=== PATIENT | male | born 2000 | race Two or more races ===

== ENCOUNTER 2025-10-12 14:46 | Emergency (ER) | payer BC, OTHER ==
[~2025-10-12] VITALS: Ht 177.8 cm; Wt 81.1 kg
--- NOTE | 2025-10-12 16:44 | ED.PDOC ---
Back pain HPI HPI Comments The patient presented with right knee pain exacerbated by movement and activity. The patient reported experiencing pain in the right knee that began almost two weeks ago. The pain worsened during activities such as bending, squatting, and kneeling. 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 The patient did not recall any specific injury or fall but noted frequent minor impacts at work. The patient did not report previous injuries to the right knee but described crepitus. There was no report of redness, swelling, or bruising. The patient mentioned stopping heavy lifting and squatting activities due to the pain. Pertinent negatives included no report of falls or specific significant injuries. Denies any other symptoms at this time. Right knee pain Started-one week ago Radiating behind the knee Pharmacotherapy Work is a possibility or with a chief Able to bear weight on the leg Denies trauma to the knee or recent fall Denies skin color changes around the knee Denies masses around the knee Denies popping/locking/giving out of the knee Denies fever chills night sweats nausea vomiting Denies previous surgeries to the knee nor significant injury Chief Complaint: Lower Extremity Time Seen by MD: 16:30 Reviewed Notes: Nurses Notes, Medications, Allergies Allergies: Coded Allergies: NO KNOWN ALLERGIES (Unverified , 10/12/25) Information Source: Patient Mode of Arrival: Ambulatory Timing: Days Duration: Since onset, Days Severity: Moderate Prehospital treatment: None Quality: Aching Onset: Spontaneous Circumstance: Other (Possibly work or gym related) History of: None Associated signs and symptoms: None Past Medical History PAST MEDICAL HISTORY: Denies Surgical History: Denies all surgeries Family History Family History: Reviewed,noncontributory to illness, Unknown Social History Smoker: Non-Smoker Alcohol: Denies ETOH Use Drugs: Denies Drug Use Lives In: Home Constitutional: denies: chills, diaphoresis, fatigue, fever, malaise, sweats, weakness, others EENTM: denies: blurred vision, double vision, ear bleeding, ear discharge, ear drainage, ear pain, ear ringing, eye pain, eye redness, hearing loss, mouth pain, mouth swelling, nasal discharge, nose bleeding, nose congestion, nose pain, photophobia, tearing, throat pain, throat swelling, voice changes, others Respiratory: denies: cough, hemoptysis, orthopnea, SOB at rest, shortness of breath, SOB with excertion, stridor, wheezing, others Cardiovascular: denies: chest pain, dizzy spells, diaphoresis, Dyspnea on exertion, edema, irregular heart beat, left arm pain, lightheadedness, palpitations, PND, syncope, others Gastrointestinal: denies: abdomen distended, abdominal pain, blood streaked bowels, constipated, diarrhea, dysphagia, difficulty swallowing, hematemesis, melena, nausea, poor appetite, poor fluid intake, rectal bleeding, rectal pain, vomiting, others Genitourinary: denies: burning, dysuria, flank pain, frequency, hematuria, incontinence, penile discharge, penile sore, pain, testicle pain, testicle swelling, urgency, others Neurological: denies: dizziness, fainting, headache, left sided numbness, left sided weakness, numbness, paresthesia, pre-existing deficit, right sided numbness, right sided weakness, seizure, speech problems, tingling, tremors, weakness, others Musculoskeletal: reports: others (Right knee pain); denies: back pain, gout, joint pain, joint swelling, muscle pain, muscle stiffness, neck pain Integumetry: denies: bruises, change in color, change in hair/nails, dryness, laceration, lesions, lumps, rash, wounds, others Allergic/Immunocompromised: denies: Difficulty Healing, Frequent Infections, Hives, Itching, others Hematologic/Lymphatic: denies: anemia, blood clots, easy bleeding, easy bruising, swollen glands, others Endocrine: denies: excessive hunger, excessive sweating, excessive thirst, excessive urination, flushing, intolerance to cold, intolerance to heat, unexplained weight gain, unexplained weight loss, others Psychiatric: denies: anxiety, bipolar disorder, depression, hopeless, panic disorder, schizophrenia, sleepless, suicidal, others All Other Systems: Reviewed and Negative Physical Exam Exam Comments Patient is alert. Musculoskeletal: Exam performed, findings not provided. No redness, swelling, or bruising in the right knee. No crepitus with flexion and extension. No tenderness to palpation of the femoral tendon, patella, or tibial tendon. Anterior posterior drawer test and valgus varus stress test were negative for pain or instability. General Appearance: No Apparent Distress, Normal HEENT: Normal ENT Inspection, Pharynx Normal, TMs Normal Neck: Full Range of Motion, Non-Tender, Normal, Normal Inspection Respiratory: Chest Non-Tender, Lungs Clear, No Accessory Muscle Use, No Respiratory Distress, Normal Breath Sounds Cardiovascular: No Edema, No JVD, No Murmur, No Gallop, Normal Peripheral Pulses, Regular Rate/Rhythm Breast Exam: Deferred Gastrointestinal: No Organomegaly, Non Tender, No Pulsatile Mass, Normal Bowel Sounds, Soft Genitalia: Deferred Pelvic: Deferred Rectal: Deferred Extremities: No calf tenderness, Normal capillary refill, Normal inspection, Normal range of motion, Non-tender, No pedal edema Musculoskeletal : Apperance: Normal Neurologic: Alert, k 9 police officer II-XII nml as Tested, No Motor Deficits, Normal Affect, Normal Mood, No Sensory Deficits Cerebellar Function: Normal Reflexes: Normal Skin: Dry, Normal Color, Warm Lymphatic: No Adenopathy Was a procedure done? Was a procedure done?: No X-Ray, Labs, Meds, VS Vital Signs Date Time Temp Pulse Resp B/P (MAP) Pulse Ox O2 Delivery O2 Flow Rate FiO2 10/12/25 17:18 98.2 10/12/25 14:52 98.6 100 16 147/82 100 98.6 Current Medications Medications (Trade) Dose Ordered Sig/Sindhu Route Start Time Stop Time Status Last Admin Ibuprofen (Motrin Tablet) 600 mg ONCE ONCE PO 10/12/25 16:45 10/12/25 16:46 DC 10/12/25 17:18 X-Ray, Labs, Meds, VS Comment Patient arrives alert and oriented, ABC's intact, afebrile, vital signs stable, saturating well in room air ASSESSMENT: The patient was assessed for potential tendinitis or jumper's knee, possibly due to overuse from construction work and powerlifting activities. The absence of significant swelling, redness, or tenderness indicated that the issue might be inflammatory rather than structural. The negative results from the anterior posterior drawer test and valgus varus stress test suggested no ligamentous instability. The possibility of tendinitis was considered, but an X- ray was recommended to rule out fractures or dislocations. PLAN: Treatment: - Medications: Ibuprofen 600-800 mg as needed for pain, up to three times a day. Tests: - Imaging: X-ray of the right knee to rule out fractures or dislocations. Patient Education: - Advised wearing a knee brace for stability if the X-ray is normal. - Recommended avoiding repetitive movements and frequent bending, and considering light duty at work. Follow-Up: - Follow up with a primary care physician for further evaluation, potential MRI, or physical therapy if symptoms persist. Disposition: - The patient was advised to refrain from heavy lifting and squatting until further evaluation. Additional MDM Review of External, Non-ED records: External records reviewed. Discussion with independent historian (EMS, family) history obtained from the patient/parents (if applicable) at bedside Chronic conditions affecting care: None Social determinants of health affecting care: None Consideration of admission (observation or admission): I considered escalation of care to admission for this patient, however given the reassuring workup, the patient is safe for outpatient management. Discussion with the Radiology: No Tests considered but not performed: Prescription medication considered but not given: 12 lead EKG interpretation: Time of 1ST Reevaluation: 17:00 Reevaluation 1ST: Unchanged Patient Education/Counseling: Diagnosis, Treatment, Prognosis Family Education/Counseling: No Family Present SEPSIS Sepsis Screen Date sepsis recognized/suspect: Oct 12, 2025 Time Sepsis recognized/suspect: 1451 Recent Procedure: No On Antibiotic Therapy: No Respiratory Rate >20: No Heart Rate >90: Yes Temp<36 C (96.8 F) or >38.3 C: No SBP <90 or MAP <65 mmHG: No New Acute Mental Status Change: No Is the patient on CPAP, BIPAP,: No Physician Orders R Knee 3v Xray (10/12/25 16:36) Vital Signs Date Time Temp Pulse Resp B/P (MAP) Pulse Ox O2 Delivery O2 Flow Rate FiO2 10/12/25 17:18 98.2 10/12/25 14:52 98.6 100 16 147/82 100 98.6 Medications Medications Dose Ordered Sig/Sindhu Route Start Time Stop Time Status Last Admin Dose Admin Ibuprofen 600 mg ONCE ONCE PO 10/12/25 16:45 10/12/25 16:46 DC 10/12/25 17:18 Departure 1 Departure Time of Disposition: 17:29 Impression: Primary Impression: Knee pain Disposition: HOME / SELF CARE / HOMELESS Condition: Stable e-Prescriptions Ibuprofen (Ibuprofen) 600 Mg Tab 1 TAB PO TID for 10 Days, #30 TAB 0 Refills Prov: NAIN,PITA F STORE CLERK CHECKER 10/12/25 Discharged With: Self Critical Care Note Critical Care Time?: No Stability Stability form required: No I personally scribed for PITA GILLETTE NP ([email or web address]) on 10/12/25 at 16:44. Electronically submitted by Cecil Mcmahon ([email or web address]). PITA GILLETTE NP Oct 12, 2025 16:44
--- NOTE | 2025-10-12 17:17 | DVH ---
CLINICAL INDICATION: Pains TECHNIQUE: 3 radiographic views of the right knee were obtained. Comparison: None FINDINGS/IMPRESSION: There is no evidence of acute fracture or dislocation. The visualized joint space is well maintained. The alignment is anatomical. There is no radiopaque foreign body.
[2025-10-12] MEDS: IBUPROFEN 600 MG TAB PO ONE (17:18)
[2025-10-12] MEDS ORDERED: IBUP-1454 PO (17:30)
[2025-10-12 17:55] VITALS: BP 113/55; PULSE 84; RESP 18; TEMP 98.2; O2SAT 98
== END 2025-10-12 17:56 | disposition home or self-care (01) ==
LOC: ER 14:46
DX: M25.561 Pain in right knee (principal)
CPT/HCPCS: 73562